=== PATIENT | male | born 1950 | race African-American/Black ===

== ENCOUNTER 2023-12-09 23:59 | Emergency (ER) | payer OTHER, MEDICAID ==
[~2023-12-09] VITALS: Ht 180.3 cm; Wt 98.9 kg
[2023-12-10 00:10] VITALS: BP 151/110; PULSE 92; RESP 16; O2SAT 97
== END 2023-12-10 03:54 | disposition left against medical advice (07) ==
LOC: ER 23:59
DX: M25.512 Pain in left shoulder (principal); M54.2 Cervicalgia; M54.50 Low back pain, unspecified; V89.2XXA Person injured in unspecified motor-vehicle accident, traffic, initial encounter; Y93.89 Activity, other specified; Y92.89 Other specified places as the place of occurrence of the external cause; Y99.8 Other external cause status